=== PATIENT | female | born 1965 ===

== ENCOUNTER 2020-11-06 12:19 | Emergency (ER) | payer MEDICARE, MEDICAID ==
[2020-11-06] MEDS ORDERED: Lorazepam 2 MG/ML VIAL ONE (12:59)
[2020-11-06] MEDS ORDERED: Promethazine HCl 25 MG/ML VIAL ONE (13:00)
[2020-11-06] MEDS ORDERED: Dexamethasone 10 MG/ML VIAL ONE (13:00)
[2020-11-06] MEDS ORDERED: Albuterol Sulfate 2.5 mg/0.5 ml Neb ONE (13:12)
[2020-11-06] MEDS ORDERED: Magnesium 2 GM/50 ML BAG (IN WATER) ONE (13:23)
[2020-11-06 13:26] LABS: #Basophils 0.1 thou/uL (0.0-0.2); #Lymphocytes 2.9 thou/uL (1.20-3.40); #Monocytes 1.3 thou/uL (0.11-0.59); #Neutrophils 13.7 thou/uL (1.40-6.50); %Basophils 0.3 % (0.0-1.0); %Eosinophils 0.1 % (0.0-10.0); %Lymphocytes 16.1 % (21.0-51.0); %Neutrophils 76.5 % (42.0-75.0); Hemoglobin 16.9 g/dL (12.0-16.0); Mean Corpuscular HGB CONC 33.6 g/dL (32.0-36.0); Mean Corpuscular Hemoglobin 30.6 pg (27.0-31.0); Mean Corpuscular Volume 91.3 fL (78.0-98.0); Mean Platelet Volume 7.3 fL (7.4-10.4); Platelet Count 253 thou/uL (130-400); RBC Distribution Width 12.5 % (11.5-14.5); White Blood Cell (WBC) Count 17.9 thou/uL (4.8-10.8)
[2020-11-06 13:48] LABS: ALT (SGPT) 12 U/L (8-55); AST (SGOT) 12 U/L (5-34); Albumin 4.4 g/dL (3.5-5.0); Alkaline Phosphatase 179 U/L (40-110); Anion Gap 18 mmol/L (10-20); BUN (Urea Nitrogen) 20 mg/dL (9.8-20.1); CK (CPK) 133 U/L (29-168); Calc. Creatinine Clearance 0 mL/min (70-130); Calcium 9.6 mg/dL (7.8-10.44); Carbon Dioxide 28 mmol/L (22-29); Chloride 94 mmol/L (98-107); Globulin 2.8 g/dL (2.4-3.5); Glucose 185 mg/dL (70-105); Lipase 4 U/L (8-78); Potassium 3.3 mmol/L (3.5-5.1); Protein, Total 7.2 g/dL (6.0-8.3); Sodium 137 mmol/L (136-145)
--- NOTE | 2020-11-06 14:21 | RAD ---
CHEST 1 VIEW: COMPARISON: None. HISTORY: Nausea, vomiting, and diarrhea. Dyspnea. FINDINGS: Atherosclerosis of the aorta. Normal cardiac silhouette. Pulmonary vessels and hilum are normal. C ostophrenic angles are clear. No mass or consolidation. Reticulonodular opacities are nonspecific. Correlate for infiltrate. No pneumothorax or acute osseous abnormalities. IMPRESSION: 1. Atherosclerosis. 2. Reticulonodular opacities which may represent infiltrate. POS: PPP
--- NOTE | 2020-11-09 17:34 | EKG ---
Test Reason : Blood Pressure : / mmHG Vent. Rate : 087 BPM Atrial Rate : 087 BPM P-R Int : 150 ms QRS Dur : 086 ms QT Int : 410 ms P-R-T Axes : 051 -05 069 degrees QTc Int : 493 ms Normal sinus rhythm Septal infarct , age undetermined Abnormal ECG Confirmed by GANESH AMBROSE, PAT ([id number]), film editor MICHELLE PAULINO ([id number]) on 11/09/2020 5:34:15 PM Referred By: Confirmed By:PAT ANDERSEN MD
== END 2020-11-06 15:45 | disposition home or self-care (01) ==
LOC: ERS 12:19
DX: J44.0 Chronic obstructive pulmonary disease with (acute) lower respiratory infection (principal); I10 Essential (primary) hypertension; Z87.891 Personal history of nicotine dependence
CPT/HCPCS: 36415; 71045; 80053; 82550; 83690; 83880; 84484; 85025; 93005; 96365; 96368; 96375; J1100; J2060; J2550; J3475; J7611; J7620